=== PATIENT | female | born 1980 | race Asian ===

== ENCOUNTER 2017-04-22 18:32 | Outpatient (CLI) | payer MEDICAID ==
[~2017-04-22] VITALS: Ht 152.4 cm; Wt 80.0 kg
[~2017-04-22 18:32] MED LIST: IBUP-1222 PO; OXYC-302 PO; PREN1TAB56 PO
[2017-04-22] MEDS ORDERED: ALUMINUM/MAG/SIMETHICONE 30 ML UDC PO PRN (20:30)
[2017-04-22] MEDS ORDERED: ALUMINUM/MAG/SIMETHICONE 30 ML UDC ONE (20:36)
[2017-04-22] MEDS ORDERED: PLEASE ENTER HEIGHT AND WEIGHT MC SCH (21:00)
== END 2017-04-22 21:35 | disposition home or self-care (01) ==
LOC: LDOP 18:32
PROVIDERS: ATTEND Obstetrics & Gynecology
DX: O26.892 Other specified pregnancy related conditions, second trimester (principal); O62.9 Abnormality of forces of labor, unspecified; R10.9 Unspecified abdominal pain; Z3A.27 27 weeks gestation of pregnancy
CPT/HCPCS: 36415; 59025; 81003; 82731; 87086; 99201; G0463

== ENCOUNTER 2017-07-16 06:21 | Inpatient (IN) | payer MEDICAID ==
[~2017-07-16] VITALS: Ht 152.4 cm; Wt 81.8 kg
[2017-07-16] MEDS ORDERED: OXYTOCIN 30U/ 0.9% NaCL 500ML 500 ML IV SCH (06:26)
[2017-07-16] MEDS ORDERED: LACTATED RINGERS 1,000 ML IV SCH (06:26)
[2017-07-16 06:30] VITALS: BP 122/76
[2017-07-16] MEDS ORDERED: CEFAZOLIN PMX 1GM/50ML 50 ML IVPB ONE (06:30)
[2017-07-16] MEDS ORDERED: ONDANSETRON 2MG/ML, 2ML IVPush ONE (06:30)
[2017-07-16] MEDS ORDERED: METOCLOPRAMIDE 5 MG/ML, 2ML IV ONE (06:30)
[2017-07-16] MEDS ORDERED: SODIUM CITRATE/CITRIC ACID 30 ML UDC PO ONE (06:30)
[2017-07-16] MEDS ORDERED: LACTATED RINGERS 1,000 ML IVBOLUS ONE (06:30)
[2017-07-16] MEDS ORDERED: NEWBORN KIT ONE (06:40)
[2017-07-16 07:07] LABS: HEMATOCRIT 38.9 % (34.6-47.8); HEMOGLOBIN 12.5 g/dL (11.7-16.4); WHITE BLOOD COUNT 10.1 x10^3/uL (3.4-10)
[2017-07-16] MEDS ORDERED: SODIUM CITRATE/CITRIC ACID 30 ML UDC ONE (07:14)
[2017-07-16] MEDS ORDERED: OXYTOCIN 30U/ 0.9% NaCL 500ML 500 ML ONE (07:14)
[2017-07-16] MEDS ORDERED: METOCLOPRAMIDE 5 MG/ML, 2ML ONE (07:15)
[2017-07-16 08:17] LABS: HIV 1&2 ANTIBODY SCREEN Nonreactive (Nonreactive); HIV-1 p24 ANTIGEN Nonreactive (Nonreactive)
[2017-07-16] MEDS: OXYTOCIN 30U/ 0.9% NaCL 500ML 500 ML IV SCH ×2 (10:07→10:27)
[2017-07-16] MEDS: LACTATED RINGERS 1,000 ML IV SCH ×2 (10:07→10:28)
[2017-07-16] MEDS ORDERED: MISOPROSTOL 200 MCG TABLET PR PRN (10:30)
[2017-07-16] MEDS ORDERED: OXYcodone/APAP 5/325MG TABLET PO PRN (10:30)
[2017-07-16] MEDS ORDERED: ONDANSETRON 2MG/ML, 2ML IV PRN (10:30)
[2017-07-16] MEDS ORDERED: OXYcodone 5 MG/5 ML ORAL.SOL UDC ONE (10:36)
[2017-07-16] MEDS ORDERED: FENTANYL PF 100 MCG/2ML ONE (10:36)
[2017-07-16] MEDS: FENTANYL PF 100 MCG/2ML IV PRN ×2 (10:41→10:52)
[2017-07-16] MEDS ORDERED: OXYcodone 5 MG/5 ML ORAL.SOL UDC PO PRN (11:00)
[2017-07-16 11:20] VITALS: BP 125/77
[2017-07-16] MEDS ORDERED: MORPHINE SULFATE 4 MG/ML, 1ML IVPush PRN (12:20)
[2017-07-16] MEDS: KETOROLAC 30 MG/1 ML IV SCH ×2 (14:32→20:55)
[2017-07-16] MEDS: OXYcodone/APAP 5/325MG TABLET PO PRN (14:32)
[2017-07-16 16:30] VITALS: BP 110/76
[2017-07-16 17:14] LABS: HEMATOCRIT 31.1 % (34.6-47.8); HEMOGLOBIN 10.1 g/dL (11.7-16.4); WHITE BLOOD COUNT 10.9 x10^3/uL (3.4-10)
[2017-07-16 20:20] VITALS: BP 124/81
[2017-07-16] MEDS: DOCUSATE 100 MG CAPSULE PO PRN (20:51)
[2017-07-17 00:05] VITALS: BP 122/85
[2017-07-17] MEDS: OXYcodone/APAP 5/325MG TABLET PO PRN ×4 (00:56→20:21)
[2017-07-17] MEDS: KETOROLAC 30 MG/1 ML IV SCH (02:47)
[2017-07-17 04:21] VITALS: BP 106/61
[2017-07-17] MEDS: LACTATED RINGERS 1,000 ML IV SCH (06:07)
[2017-07-17] MEDS: OXYTOCIN 30U/ 0.9% NaCL 500ML 500 ML IV SCH (06:07)
[2017-07-17 07:10] VITALS: BP 132/78
[2017-07-17] MEDS: DOCUSATE 100 MG CAPSULE PO PRN ×2 (07:29→20:21)
[2017-07-17] MEDS ORDERED: METOCLOPRAMIDE 5 MG/ML, 2ML ONE (08:06)
[2017-07-17] MEDS ORDERED: OXYTOCIN 10 UNITS/ML, 1ML ONE (08:06)
[2017-07-17] MEDS ORDERED: KETOROLAC 30 MG/1 ML ONE (08:06)
[2017-07-17] MEDS ORDERED: SODIUM CITRATE/CITRIC ACID 30 ML UDC ONE (08:06)
[2017-07-17] MEDS: PRENATAL VIT/IRON/FA 1 EACH TABLET PO SCH (09:00)
[2017-07-17] MEDS ORDERED: IBUPROFEN 600 MG TABLET ONE (13:35)
[2017-07-17 19:00] VITALS: BP 131/88
[2017-07-17] MEDS ORDERED: IBUPROFEN 600 MG TABLET PO PRN (20:30)
[2017-07-17] MEDS: IBUPROFEN 600 MG TABLET PO PRN (21:39)
[2017-07-18] MEDS: IBUPROFEN 600 MG TABLET PO PRN ×3 (03:35→23:12)
[2017-07-18] MEDS: OXYcodone/APAP 5/325MG TABLET PO PRN ×4 (03:35→18:31)
[2017-07-18 07:00] VITALS: BP 113/89
[2017-07-18] MEDS: DOCUSATE 100 MG CAPSULE PO PRN ×2 (07:43→23:12)
[2017-07-18] MEDS: PRENATAL VIT/IRON/FA 1 EACH TABLET PO SCH (07:44)
[2017-07-18] MEDS ORDERED: IBUPROFEN 600 MG TABLET PO PRN (11:00)
[2017-07-18 19:40] VITALS: BP_SYST 132; BP_DIAS 91; BP_DIAS 92
[2017-07-19] MEDS: OXYcodone/APAP 5/325MG TABLET PO PRN ×2 (00:33→07:48)
[2017-07-19 07:42] VITALS: BP 131/85
[2017-07-19] MEDS: IBUPROFEN 600 MG TABLET PO PRN (07:48)
[2017-07-19] MEDS: DOCUSATE 100 MG CAPSULE PO PRN (07:48)
[2017-07-19] MEDS: PRENATAL VIT/IRON/FA 1 EACH TABLET PO SCH (07:52)
[2017-07-19] MEDS ORDERED: IBUP-1222 PO (10:15)
[2017-07-19] MEDS ORDERED: DOCU-131 PO (10:15)
[2017-07-19] MEDS ORDERED: OXYC-302 PO (10:16)
== END 2017-07-19 13:42 | disposition home or self-care (01) | DRG 766 ==
LOC: LDIP 06:21 → 2NW 11:07
PROVIDERS: ADMIT Obstetrics & Gynecology; ATTEND Obstetrics & Gynecology
PROC: 10D00Z1 Extraction of Products of Conception, Low, Open Approach (ICD-10-PCS; principal; 2017-07-16)
PROC: 0JNC0ZZ Release Pelvic Region Subcutaneous Tissue and Fascia, Open Approach (ICD-10-PCS; 2017-07-16)
DX: O34.211 Maternal care for low transverse scar from previous cesarean delivery (principal); N73.6 Female pelvic peritoneal adhesions (postinfective); O99.89 Other specified diseases and conditions complicating pregnancy, childbirth and the puerperium; Z37.0 Single live birth; Z90.49 Acquired absence of other specified parts of digestive tract; Z3A.39 39 weeks gestation of pregnancy
CPT/HCPCS: 36415; 85025; 86703; 86850; 86900; 87899; J1885; J3010; G0435; J2590; J2765; J7120

== ENCOUNTER 2021-05-24 21:50 | Emergency (ER) | payer MEDICAID ==
[~2021-05-24] VITALS: Ht 152.4 cm; Wt 83.5 kg
[~2021-05-24 21:50] MED LIST changes: +DOCU-131 PO; -OXYC-302 PO; +OXYC1TAB14 PO
--- NOTE | 2021-05-24 22:21 | NUR ---
DIRECT SERVICE PROVIDER: PT. TO ROOM FROM LOBBY AT THIS TIME.
--- NOTE | 2021-05-24 22:23 | NUR ---
pt came into ed this evening due to being , 8 weeks and having lower cramping sensation that started today. reports it feels like contractions, denies N/V/D. at bs, changed into gown, provided warm blankets for comfort. Patient is resting comfortably in bed. Bed in lowest, rails engaged, call light on lap. Vital Signs within normal limits, Monitoring in place at this time. WCTM.
[2021-05-24 22:46] LABS: MICROSCOPIC NOT IND
--- NOTE | 2021-05-24 23:29 | NUR ---
US at bs. Pt nad, no changes in condition, at bs, wctm. Patient is resting comfortably in bed. Bed in lowest, rails engaged, call light on lap. Vital Signs within normal limits. WCTM.
[2021-05-25 00:25] LABS: BASOPHILS % (AUTO) 0 % (0-1); EOSINOPHILS % (AUTO) 1 % (1-7); LYMPHOCYTES % (AUTO) 28 % (22-44); MEAN CORPUSCULAR HEMOGLOBIN 24.2 pg (27.0-34.8); MEAN CORPUSCULAR HGB CONC 32.2 g/dL (32.4-35.8); MEAN PLATELET VOLUME 8.6 fL (7.4-10.4); MONOCYTES % (AUTO) 6 % (2-9); NEUTROPHILS % (AUTO) 65 % (42-75); PLATELET COUNT 271 x10^3/uL (130-400); RED BLOOD COUNT 5.13 x10^6/uL (3.82-5.3); RED CELL DISTRIBUTION WIDTH 13.9 % (9.6-15.2)
[2021-05-25 01:28] VITALS: BP 114/67
--- NOTE | 2021-05-25 01:29 | NUR ---
Patient/Caregiver given discharge instructions and they have confirmed that they understand the instructions. Patient ambulatory with steady gait. NAD, all questions answered appropriately, denies additional needs at this time. No personal belongings left in room after discharge.
== END 2021-05-25 01:31 | disposition home or self-care (01) ==
LOC: ED 23:00
DX: O03.4 Incomplete spontaneous abortion without complication (principal); R00.0 Tachycardia, unspecified
CPT/HCPCS: 36415; 76801; 81003; 84702; 85025; 99284

== ENCOUNTER 2021-06-07 02:20 | Emergency (ER) | payer MEDICAID ==
[~2021-06-07] VITALS: Ht 152.4 cm; Wt 81.0 kg
[2021-06-07 02:52] LABS: BASOPHILS % (AUTO) 0 % (0-1); EOSINOPHILS % (AUTO) 1 % (1-7); LYMPHOCYTES % (AUTO) 26 % (22-44); MEAN CORPUSCULAR HEMOGLOBIN 24.7 pg (27.0-34.8); MEAN CORPUSCULAR HGB CONC 33.1 g/dL (32.4-35.8); MEAN PLATELET VOLUME 8.5 fL (7.4-10.4); MONOCYTES % (AUTO) 5 % (2-9); NEUTROPHILS % (AUTO) 68 % (42-75); PLATELET COUNT 271 x10^3/uL (130-400); RED BLOOD COUNT 5.21 x10^6/uL (3.82-5.3)
[2021-06-07] MEDS ORDERED: MORPHINE SULFATE 4 MG/ML, 1ML ONE ×2 (02:57→03:38)
[2021-06-07] MEDS ORDERED: ONDANSETRON 2MG/ML, 2ML ONE (02:58)
[2021-06-07] MEDS ORDERED: MORPHINE SULFATE 4 MG/ML, 1ML IVPush ONE ×3 (03:00→05:00)
[2021-06-07] MEDS ORDERED: ONDANSETRON 2MG/ML, 2ML IVPush ONE (03:00)
--- NOTE | 2021-06-07 03:13 | NUR ---
Patient presents to ER c/o vag bleeding and cramping. Patient is 8 weeks and was seen x2 weeks ago and told she was having a miscarriage. Patient is in obvious discomfort. Respirations even and unlabored. at bedside.
[2021-06-07 03:16] LABS: ALBUMIN 3.2 g/dL (3.4-5.0); ANION GAP 5 mmol/L (5-15); CALCIUM 9.4 mg/dL (8.5-10.1); CHLORIDE 107 mmol/L (98-107); CREATININE 0.53 mg/dL (0.55-1.02)
[2021-06-07 03:33] LABS: MICROSCOPIC INDICATED
[2021-06-07 04:51] VITALS: BP 112/83
--- NOTE | 2021-06-07 05:00 | NUR ---
Discharge instructions given. All questions and concerns addressed. Patinet ambulatory with a steady gait. Belongings with patient.
== END 2021-06-07 05:01 | disposition home or self-care (01) ==
LOC: ED 04:00
DX: O03.4 Incomplete spontaneous abortion without complication (principal)
CPT/HCPCS: 36415; 80048; 81001; 82040; 84702; 85025; 86901; 87086; 96374; 96375; 96376; 99284; J2270; J2405